=== PATIENT | female | born 1935 | race Caucasian/White ===

== ENCOUNTER 2019-06-02 20:00 | Emergency (ER) | payer OTHER, MEDICARE ==
[2019-06-02 20:17] VITALS: BP 156/71; PULSE 79; TEMP 98.2; BMI 18.6
--- NOTE | 2019-06-02 22:23 | PDOC ---
Documentation entered by Ryan De Los Santos SCRIBE, acting as scribe for Bijal Galeana MD. Bijal Galeana MD: This documentation has been prepared by the mariiaeFiliberto Elijah, SCRIBE, under my direction and personally reviewed by me in its entirety. I confirm that the documentation accurately reflects all work, treatment, procedures, and medical decision making performed by me. History of Present Illness - General Chief Complaint: Injury Stated Complaint: FACIAL INJURY History Source: Patient Exam Limitations: No Limitations - History of Present Illness Initial Comments: 06/02/19 20:49 Patient is an 84 year old lady with a significant past medical history of HTN who presents today s/p fall occurring a hour ago. Patient reports that she was walking down steps, missed one and fell, hitting her face. Patient reports that she hit her nose/lip and now associates a headache (frontal) and pain in her right front tooth. She denies nosebleed. Denies LOC, Changes in Vision, Neck pain or arm pain. She has been ambulating without difficulty and walked into the emergency room She denies using any anticoagulation medication including aspirin Allergies: NKA PCP: Dr. Martinez Past History - Past Medical History Allergies/Adverse Reactions: Allergies Allergy/AdvReac Type Severity Reaction Status Date / Time No Known Allergies Allergy Unverified 06/02/19 21:00 Home Medications: Ambulatory Orders Unobtainable 06/02/19 Review of Systems - Review of Systems Comments:: 06/02/19 20:49 All systems are reviewed and negative except as noted in the HPI *Physical Exam - Physical Exam 06/02/19 20:45 GENERAL: Awake, alert, and fully oriented, in no acute distress FACE: +Moderate Edema and slight deformity of nasal bridge. +3mm Non-Bleeding abrasion midline of Nasal Bridge +Scant Crusted Blood b/l nares without septal hemotoma or clear indication of deviated septum. +1cm x 2cm non-bleeding contusion of the Right Upper Lip. +Mild Tenderness without obvious fracture of central upper incisor. No significant loosening of Tooth EYES: PERRLA, EOMI, sclera anicteric, conjunctiva clear ENT: Auricles normal inspection, hearing grossly normal, nares patent, oropharynx clear without exudates. Moist mucosa NECK: Normal ROM, supple, no lymphadenopathy, JVD, or masses, Non-Tender LUNGS: Breath sounds equal, clear to auscultation bilaterally. No wheezes, and no crackles HEART: Regular rate and rhythm, normal S1 and S2, no murmurs, rubs or gallops ABDOMEN: Soft, nontender, normoactive bowel sounds. No guarding, no rebound. No masses EXTREMITIES: Normal range of motion, no edema. No clubbing or cyanosis. No cords, erythema, or tenderness NEUROLOGICAL: Cranial nerves II through XII grossly intact. Normal speech, normal gait SKIN: Warm, Dry, normal turgor, no rashes or lesions noted. Medical Decision Making - Medical Decision Making As noted above, this 84-year-old woman presents to the ER after missing a step as she was climbing down outside stairway just prior to presentation. She fell , impacting her mid face area. There was no LOC or epistaxis. Patient is alert and remembers all details of the fall. Her main complaints are pain in her right front tooth (upper jaw) and a mild right frontal headache. Exam as noted. Although the patient does not take any anticoagulation, because of her advanced age and direct impact to her face, the patient will have a noncontrast head CT as well as facial bone CT to evaluate for acute injury. Preliminary interpretation by Imaging jury consultant of noncontrast head CT and maxillofacial CT: No evidence of skull fracture/intracranial injury. No evidence of acute maxillofacial injury. Results discussed with the patient and her daughter. Clinical presentation consistent with nasal and upper lip contusion and possible right central upper incisor injury. The patient should keep her head elevated tonight and can apply cool compresses to the area of bruising. She should maintain a soft or liquid diet until seen by her dentist (call office tomorrow). She should use Tylenol only as needed for pain, especially in the first 2 to 3 days after the injury. She should return to the ER if she has worsening pain or develops severe headache/vomiting/lightheadedness. She should plan on following up with her doctor within the next 5 days Discharge - Discharge Information Problems reviewed: Yes Clinical Impression/Diagnosis: Nasal contusion Qualifiers: Encounter type: initial encounter Qualified Code(s): S00.33XA - Contusion of nose, initial encounter Contusion of lip Qualifiers: Encounter type: initial encounter Qualified Code(s): S00.531A - Contusion of lip, initial encounter Closed head injury Qualifiers: Encounter type: initial encounter Qualified Code(s): S09.90XA - Unspecified injury of head, initial encounter Condition: Stable Disposition: HOME - Follow up/Referral Referrals: Royal Martinez [Primary Care Provider] - - Patient Discharge Instructions Patient Printed Discharge Instructions: Contusion, Closed Head Injury Additional Instructions: Keep head elevated as much as possible over the next 1 to 2 days Cold compresses to area of bruising on your face for the next 24 hours Tylenol as needed for pain for the next 2 to 3 days Soft or liquid diet until seen by your dentist; call your dentist in the morning to arrange follow-up Return to ER if you have severe headache/vomiting/lightheadedness Follow-up with your general medical doctor within the next 5 days - Post Discharge Activity
--- NOTE | 2019-06-03 11:19 | PDOC ---
*Physical Exam - Vital Signs Last Vital Signs Temp Pulse Resp BP Pulse Ox 98.2 F 79 16 156/71 100 06/02/19 20:00 06/02/19 20:00 06/02/19 20:00 06/02/19 20:00 06/02/19 20:00 - Physical Exam 06/03/19 11:16 Dr. Pope called regarding final read of CT which showed a single focus of cortical hypodensity in the R side that that may be represents a small bleed, recommend repeat CT scan 06/03/19 11:23 Patient called and informed of CT scan and she advised to come to the ER for repeat scan. She is aware and is planning to go to the ER. Marcelle Dockery informed of patient coming in. Discharge - Discharge Information Clinical Impression/Diagnosis: Nasal contusion Qualifiers: Encounter type: initial encounter Qualified Code(s): S00.33XA - Contusion of nose, initial encounter Contusion of lip Qualifiers: Encounter type: initial encounter Qualified Code(s): S00.531A - Contusion of lip, initial encounter Closed head injury Qualifiers: Encounter type: initial encounter Qualified Code(s): S09.90XA - Unspecified injury of head, initial encounter Condition: Stable Disposition: HOME - Follow up/Referral Referrals: Royal Martinez [Primary Care Provider] - - Patient Discharge Instructions Patient Printed Discharge Instructions: Contusion, Closed Head Injury Additional Instructions: Keep head elevated as much as possible over the next 1 to 2 days Cold compresses to area of bruising on your face for the next 24 hours Tylenol as needed for pain for the next 2 to 3 days Soft or liquid diet until seen by your dentist; call your dentist in the morning to arrange follow-up Return to ER if you have severe headache/vomiting/lightheadedness Follow-up with your general medical doctor within the next 5 days - Post Discharge Activity
--- NOTE | 2019-06-03 11:29 | PDOC ---
Patient Follow-up (Call Back) - Post ED Follow - Up Condition at time of discharge: Stable Disposition at time of original discharge: HOME - Disposition Additional Instructions/Notes: Dr. Pope called regarding final read of CT which showed a single focus of cortical hypodensity in the R side that that may be represents a small bleed, recommend repeat CT scan 06/03/19 11:23 Patient called and informed of CT scan and she advised to come to the ER for repeat scan. She is aware and is planning to go to the ER. Marcelle Dockery informed of patient coming in.
== END 2019-06-02 22:10 | disposition home or self-care (01) ==
LOC: FER 20:00
DX: S00.33XA Contusion of nose, initial encounter (principal); S00.531A Contusion of lip, initial encounter; S09.90XA Unspecified injury of head, initial encounter; W10.9XXA Fall (on) (from) unspecified stairs and steps, initial encounter; Y93.89 Activity, other specified; Y92.89 Other specified places as the place of occurrence of the external cause; I10 Essential (primary) hypertension
CPT/HCPCS: 70450-TC; 70486-TC; 99281-25

== ENCOUNTER 2019-06-03 12:44 | Emergency (ER) | payer OTHER, MEDICARE ==
[2019-06-03 12:53] VITALS: BP 134/64; PULSE 78; TEMP 97.3; BMI 18.6
--- NOTE | 2019-06-03 12:56 | PDOC ---
History of Present Illness - General Chief Complaint: Revisit,Radiology Variance Stated Complaint: RADIOLOGY VARIANCE, FALL, FACIAL INJURY Time Seen by Provider: 06/03/19 12:55 - History of Present Illness Initial Comments: 06/03/19 14:04 Chief complaint: Patient has no new complaints. She was called back for repeat CAT scan at the suggestion of the radiologist because of a small density that appeared on the examination performed yesterday HPI: As noted above and in the ER record from yesterday. Again, she presents after a call from the radiologist requesting a repeat CT Review of systems: Patient fell yesterday and injured her face, with contusions to the bridge of the nose and the upper lip. She had a mild headache but no visible or palpable trauma to the head. Her headache has resolved. She has no visual or focal neurologic symptoms or unsteadiness of gait. Her only symptoms today are swelling and pain of the right upper lip and bridge of the nose. Past medical history: Reviewed and noncontributory Social/family history reviewed from the old record and noncontributory Physical exam: Alert and oriented well-developed well-nourished no acute distress cheerful and cooperative. Specifically denies headache, unsteadiness of gait, visual or focal neurologic symptoms Head atraumatic. PERRLA, fundi benign with sharp disc margins and good central venous pulsations. Ears clear. Throat clear. Swelling and abrasion of the bridge of the nose, with mild tenderness to palpation. No deformity and no breathing obstruction. Abrasion over the right upper lip, with mild swelling. No drainage or sign of infection. Neck without tenderness or deformity, full range of motion without pain Lungs clear. No chest wall tenderness or deformity CV normal Abdomen benign Neurological C2 to 12 intact. Strength full and symmetric. No focal sensorimotor deficits. Gait stable and unimpaired Impression: No signs or symptoms of an acute bleed or other significant head trauma. Patient has no related complaints and her headache is resolved Plan: Repeat CT was performed. Small cortical density remained stable. No other abnormalities were seen. The scan was reviewed with Dr. Rubi the radiologist and he is reassured that there has been no progression. States it may be minor contusion but there is been no progression. Patient was reassured but instructed to return to the ER if she develops any further symptoms, otherwise follow-up with primary physician in a timely manner. Past History - Past Medical History Allergies/Adverse Reactions: Allergies Allergy/AdvReac Type Severity Reaction Status Date / Time No Known Allergies Allergy Verified 06/03/19 12:46 Home Medications: Ambulatory Orders Acetaminophen [Tylenol -] 500 mg PO ONCE 06/03/19 Amlodipine Besylate mg PO DAILY 06/03/19 Atorvastatin Ca [Lipitor] mg PO HS 06/03/19 Bupropion HCl [Wellbutrin -] mg PO DAILY 06/03/19 Clonazepam mg PO HS 06/03/19 L.acidoph,Paracasei, B.lactis [Probiotic] 1 each PO DAILY 06/03/19 COPD: No HTN: Yes Hypercholesterolemia: Yes Psychiatric Problems: Yes - Surgical History Cholecystectomy: Yes - Psycho Social/Smoking Cessation Hx Smoking History: Former smoker Have you smoked in the past 12 months: No Information on smoking cessation initiated: No Hx Alcohol Use: (nightly, "moderate") *Physical Exam - Vital Signs Last Vital Signs Temp Pulse Resp BP Pulse Ox 97.3 F L 78 18 134/64 98 06/03/19 12:44 06/03/19 12:44 06/03/19 12:44 06/03/19 12:44 06/03/19 12:44 Discharge - Discharge Information Problems reviewed: Yes Clinical Impression/Diagnosis: Closed head injury Condition: Stable Disposition: HOME - Admission No - Follow up/Referral Referrals: Damaris Martinez [Primary Care Provider] - 1 week - Patient Discharge Instructions Patient Printed Discharge Instructions: DI for Closed Head Injury Additional Instructions: Rest, return to ER if there is headache or other serious symptom that develops. Otherwise follow-up with primary physician in 1 week. - Post Discharge Activity
== END 2019-06-03 13:45 | disposition home or self-care (01) ==
LOC: FER 12:44
DX: S09.90XD Unspecified injury of head, subsequent encounter (principal); W18.39XD Other fall on same level, subsequent encounter; Y93.9 Activity, unspecified; Y92.9 Unspecified place or not applicable
CPT/HCPCS: 70450-TC; 99284-25